=== PATIENT | female | born 1965 | race Caucasian/White ===

== ENCOUNTER 2017-08-03 09:56 | Day surgery (SDC) | payer BC ==
[2017-07-22 16:44] VITALS: BMI 34.9
--- NOTE | 2017-07-26 09:02 | HP ---
Admitting History and Physical - Primary Care Physician PCP: Lam Montalvo - Admission Chief Complaint: right breast atypia History of Present Illness: Patient is a 52 yo female with family history of breast cancer who was noted to have right breast calcifications in the right 1 and 4 oclock region. Patient underwent stereotactic core bx of these two areas. The one oclock lesion was benign and the 4 oclock lesion was c/w atypia. Patient is now presenting for WE with NL. History Source: Patient - Past Medical History Cardiovascular: Yes: HTN - Past Surgical History Past Surgical History: Yes: None - Advance Directives Advance Directives: Yes: Health Care Proxy - Smoking History Smoking history: Former smoker Have you smoked in the past 12 months: No If you are a former smoker, when did you quit?: AGE 25 - Alcohol/Substance Use Hx Alcohol Use: Yes (SOCIAL) Home Medications - Allergies Allergies/Adverse Reactions: Allergies Allergy/AdvReac Type Severity Reaction Status Date / Time No Known Allergies Allergy Verified 07/22/17 16:26 - Home Medications Home Medications: Ambulatory Orders Hydrochlorothiazide [Hctz -] 12.5 mg PO HS 07/22/17 Lisinopril 5 mg PO HS 07/22/17 Metoprolol Succinate [Toprol Xl] 50 mg PO HS 07/22/17 Family Disease History - Family Disease History Family Disease History: CA: Grandparent (maternal breast and gastric at 76 ), Mother (breast cancer at 76) Other Family History: maternal uncle-prostate cancer at 70. paternal uncle - pancreatic cancer at 59. paternal GF-leukemia Review of Systems - Review of Systems Constitutional: reports: No Symptoms Cardiovascular: reports: No Symptoms Respiratory: reports: No Symptoms Physical Examination Constitutional: Yes: Well Nourished Breast(s): Yes: Other (Extremely ptotic double D breasts with right breast bruising noted at bx site. NO suspicious masses noted bilaterally. No adenopathy noted bilaterally.) Problem List - Problems (1) Atypical hyperplasia of right breast Code(s): N62 - HYPERTROPHY OF BREAST Assessment/Plan Plan: Right breast WE with NL.
[2017-08-03] MEDS ORDERED: ONDANSETRON 4 MG/2 ML VIAL IVPUSH PRN (13:11)
[2017-08-03] MEDS ORDERED: KETOROLAC TROMETHAMINE 30 MG/1 ML VIAL IVPUSH PRN (13:11)
[2017-08-03] MEDS ORDERED: DEXTROSE 5%-0.45% SALINE 1,000 ML IV SCH (13:15)
[2017-08-03] MEDS ORDERED: ceFAZolin SODIUM 1 GM VIAL ONE (13:48)
[2017-08-03] MEDS ORDERED: MIDAZOLAM HCL 2 MG/2 ML SINGLE DOSE VIAL ONE (13:49)
[2017-08-03] MEDS ORDERED: PROPOFOL 20 ML ONE ×2 (13:49→14:35)
[2017-08-03] MEDS ORDERED: SUCCINYLCHOLINE CHLORIDE 200 MG/10 ML VIAL ONE (13:49)
[2017-08-03] MEDS ORDERED: LIDOCAINE HCL 1%, 10 MG/ML (20ML VIAL) ONE ×2 (13:55→14:35)
[2017-08-03] MEDS ORDERED: GUM MASTIC/STORAX/MSAL/ALCOHOL 1 DRP DROPSBTL MC ONE (15:03)
[2017-08-03 15:28] VITALS: TEMP 98.2
[2017-08-03 16:17] VITALS: BP 127/72; PULSE 77
--- NOTE | 2017-08-04 07:45 | OP ---
DATE OF OPERATION: 08/03/2017 PREOPERATIVE DIAGNOSIS: Right breast atypia. POSTOPERATIVE DIAGNOSIS: Right breast atypia. PROCEDURE PERFORMED: Right breast partial mastectomy with needle localization. SURGEON: Cheryl Montalvo MD DIRECTOR DANCE: RAAD Llamas ANESTHESIA: Local, with IV sedation. COMPLICATIONS: There were no complications. INDICATIONS: Briefly, the patient is a 52-year-old , perimenopausal white female of [place] descent. She has a strong family history with her maternal grandmother, who had breast and gastric cancer at age 68, and her mother had breast cancer at age 76. Her paternal uncle had pancreatic cancer at age 59, and her maternal uncle had prostate cancer at age 70. The patient underwent bilateral mammography and ultrasound in May 2017, showing calcifications in the right breast at the 1 to 4 o'clock regions. Stereotactic core biopsies showed the 1 o'clock region to be benign, but the 4 o'clock region showed some atypical lobular hyperplasia. Slides were reviewed and felt to be consistent with atypical lobular hyperplasia. Wide excision was recommended. DESCRIPTION OF PROCEDURE: The patient was brought in for wide excision on August 03, 2017. She underwent needle localization at Radiology and was brought to the holding area. In the holding area, site verification was made and informed consent was obtained. She was brought into the operating room and laid on the OR table in the supine position. Venodynes were placed on the lower extremities. She received IV sedation, and the right breast was sterilely prepped and draped in the usual fashion, with the wire prepped in the field. One percent lidocaine was given in a curvilinear fashion on the upper inner aspect of the right breast. A curvilinear incision was made and dissection was undertaken around the needle localization. The breast tissue was completely removed from around the wire. The specimen was removed and oriented with a long lateral suture and a short superior suture. Specimen radiograph showed removal of the clip in question. Hemostasis was achieved. The breast parenchyma was reapproximated using 2-0 plain suture. The skin was closed using interrupted 3-0 deep dermal Vicryl suture and a running 4-0 subcuticular Monopril suture. Mastisol and Steri-Strips were applied over the wound and a compressive dressing placed over this. She was placed in a surgical bra postoperatively. The patient was awake and alert at the end of the procedure, and told of the grossly benign results. She will follow up in the office in 1 week for a formal wound and pathology check. All sponge and needle counts were correct at the end of the case. Estimated blood loss was minimal. CHERYL MONTALVO M.D. [id number]
--- NOTE | 2017-08-05 13:49 | PATH ---
Surgical Pathology Report Patient Name: CAROL ANTHONY [facility]. Rec. #: [id number] /Age/Gender: 1965 (Age: 52) / F Account: [id number] [facility] Taken: 08/03/2017 Received: 08/03/2017 Reported: 08/05/2017 Physicians: Lam Montalvo M.D. Specimen(s) Received RIGHT BREAST WIDE EXCISION Clinical History Mammographic findings: Microcalcification ALH on core biopsy Final Diagnosis RIGHT BREAST, WIDE EXCISION WITH WIRE LOCALIZATION: ATYPICAL LOBULAR HYPERPLASIA (ALH) ARISING IN A BACKGROUND OF FIBROCYSTIC CHANGES INCLUDING STROMAL FIBROSIS, DUCTAL DILATATION, AND CYSTIC APOCRINE METAPLASIA. FIBROADENOMATOID CHANGES ARE PRESENT. AREA OF STROMAL FIBROSIS CONSISTENT WITH PRIOR BIOPSY SITE PRESENT. Comment: Also see prior Slide Review specimen [id number]. Electronically Signed Michael Vasquez M.D. Gross Description Received in formalin labeled "right breast wide excision," is a 5.3 x 2.4 x 1.7 cm irregular portion of fibroadipose tissue with a needle localization wire present. There is a short suture marking the superior aspect and a long suture marking the lateral aspect of the specimen, per the surgeon. There is no skin or nipple present. The specimen is inked as follows: Superior and lateral blue; inferior green; medial yellow; anterior red; deep black. The specimen is serially sectioned from lateral to medial. Sectioning reveals a 0.6 x 0.6 x 0.5 cm focus of firm fibrous tissue, focally abutting the deep, superior and inferior margins. The remaining breast parenchyma displays foci of fibrous tissue. The specimen is entirely and sequentially submitted in 12 cassettes with the lateral margin in cassette 1, the medial margin in cassette 12 and the firm focus in cassettes 6-8. Time to formalin fixation: 4 minutes Total formalin fixation time: Approximately 28 hours. 08/04/201708/04/2017
== END 2017-08-03 16:15 | disposition home or self-care (01) ==
LOC: FASU 09:56
PROVIDERS: ATTEND Surgery Surgical Oncology
PROC: 0HBT0ZZ Excision of Right Breast, Open Approach (ICD-10-PCS; principal; 2017-08-03 14:26)
DX: N60.31 Fibrosclerosis of right breast (principal); N60.11 Diffuse cystic mastopathy of right breast; N62 Hypertrophy of breast; N64.89 Other specified disorders of breast; Z80.3 Family history of malignant neoplasm of breast
CPT/HCPCS: 19281; 84703; 88307-TC